=== PATIENT | female | born 1985 | race Caucasian/White ===

== ENCOUNTER 2017-05-19 12:10 | Emergency (ER) | payer BC, OTHER ==
--- NOTE | 2017-05-19 12:55 | EDPHY ---
H & P Time Seen by Provider: 05/19/17 12:52 HPI/ROS: Chief complaint. Dizzy HPI. 31-year-old female presents emergency department with complaint of heart pounding since this morning. Then lightheaded faint feeling. Cough that is slightly unusual for her and nonproductive. Pressure left anterior chest maybe going to the left shoulder. Dizzy on standing. Her symptoms are better now. No abdominal pain, nausea vomiting or diarrhea. No fever. No unusual leg pain or swelling. She went to [facility] urgent care and her heart rate was 104. Her symptoms are worse with ambulation ROS Constitutional. no fever/chills, no weakness Eyes. no problems with vision ENT. no sore throat, no nasal drainage Cardiovascular. Chest pressure Respiratory. Cough Abdominal. no abdominal pain, no nausea/vomiting, no diarrhea . no problems urinating MS. no calf pain/swelling, no neck/back pain, no joint pain Skin. no rash Lymph. no swollen glands Neuro. Dizziness Past Medical/Surgical History: Celiac disease, asthma, eating disorder, depression Social History: , nonsmoker, no alcohol Smoking Status: Former smoker Physical Exam: General Appearance: Alert well-developed female mild distress vital signs are stable Eyes: Pupils equal and round no pallor or injection. ENT, Mouth: Mucous membranes are moist. Respiratory: There are no retractions, lungs are clear to auscultation. Cardiovascular: Regular rate and rhythm. Gastrointestinal: Abdomen is soft and nontender, no masses, bowel sounds normal. Neurological: Awake and alert, sensory and motor exams grossly normal. Skin: Warm and dry, no rashes. Musculoskeletal: Neck is supple nontender. Extremities symmetrical, full range of motion. Psychiatric: Patient is oriented X 3, there is no agitation. Constitutional: Initial Vital Signs Temperature (C) 36.7 C 05/19/17 12:14 Heart Rate 84 05/19/17 12:14 Respiratory Rate 16 05/19/17 12:14 Blood Pressure 114/73 05/19/17 12:14 O2 Sat (%) 97 05/19/17 12:14 O2 Delivery Mode Room Air Allergies/Adverse Reactions: gluten Allergy (Intermediate, Verified 05/19/17 12:18) Abdominal Cramping nitrous oxide Allergy (Intermediate, Verified 05/19/17 12:18) Dyspnea Home Medications: Medication Instructions Recorded Albuterol 05/19/17 Aviane-28 Tablet 05/19/17 Claritin 05/19/17 Prozac 10 MG (*) 05/19/17 Singulair 05/19/17 Medical Decision Making - Diagnostics EKG Interpretation: EKG interpreted by me shows normal sinus rhythm normal interval and axis. QRS is normal there is no significant ST elevation or depression. There is no arrhythmia. The rate is 75 Imaging Results: Imaging Impressions Chest X-Ray 05/19/17 13:05 Impression: Prominence of perihilar interstitial markings and peribronchial cuffing. Findings are nonspecific but can be seen with bronchitis, reactive airway disease, or viral process. Procedures: IV normal saline, monitor ED Course/Re-evaluation: Re-evaluation at 2:55 p.m.--patient is stable. She and I discussed imaging lab EKG findings. We discussed treatment plan including criteria for return and importance of follow-up further evaluation. She expresses understanding and agreement Differential Diagnosis: I considered palpitations, acute coronary syndrome, pulmonary embolus, pneumonia , anxiety. No explanation for dizziness. Possible dehydration. - Data Points Laboratory Results: Laboratory Results 05/19/17 13:11 05/19/17 13:11 05/19/17 05/19/17 05/19/17 13:11 13:11 13:11 WBC RBC Hgb Hct MCV MCH MCHC RDW Plt Count MPV Neut % (Auto) Lymph % (Auto) [place] % (Auto) Eos % (Auto) Baso % (Auto) Nucleat RBC Rel Count Absolute Neuts (auto) Absolute Lymphs (auto) Absolute Monos (auto) Absolute Eos (auto) Absolute Basos (auto) Absolute Nucleated RBC Immature Gran % Immature Gran # D-Dimer < 0.27 ug/mLFEU ug/mLFEU (0.00-0.50) Sodium 141 mEq/L mEq/L (135-145) Potassium 4.1 mEq/L mEq/L (3.5-5.2) Chloride 108 mEq/L mEq/L (97-110) Carbon Dioxide 22 mEq/l mEq/l (22-31) Anion Gap 11 mEq/L mEq/L (8-16) BUN 7 mg/dL mg/dL (7-23) Creatinine 0.6 mg/dL mg/dL (0.6-1.0) Estimated GFR > 60 Glucose 87 mg/dL mg/dL (70-100) Calcium 9.1 mg/dL mg/dL (8.5-10.4) Troponin I < 0.012 ng/mL ng/mL (0.000-0.034) Beta HCG, Qual NEGATIVE 05/19/17 13:11 WBC 7.34 10^3/uL 10^3/uL (3.80-9.50) RBC 4.32 10^6/uL 10^6/uL (4.18-5.33) Hgb 13.6 g/dL g/dL (12.6-16.3) Hct 39.3 % % (38.0-47.0) MCV 91.0 fL fL (81.5-99.8) MCH 31.5 pg pg (27.9-34.1) MCHC 34.6 g/dL g/dL (32.4-36.7) RDW 13.0 % % (11.5-15.2) Plt Count 200 10^3/uL 10^3/uL (150-400) MPV 10.9 fL fL (8.7-11.7) Neut % (Auto) 61.7 % % (39.3-74.2) Lymph % (Auto) 26.6 % % (15.0-45.0) [place] % (Auto) 6.9 % % (4.5-13.0) Eos % (Auto) 2.7 % % (0.6-7.6) Baso % (Auto) 1.0 % % (0.3-1.7) Nucleat RBC Rel Count 0.0 % % (0.0-0.2) Absolute Neuts (auto) 4.53 10^3/uL 10^3/uL (1.70-6.50) Absolute Lymphs (auto) 1.95 10^3/uL 10^3/uL (1.00-3.00) Absolute Monos (auto) 0.51 10^3/uL 10^3/uL (0.30-0.80) Absolute Eos (auto) 0.20 10^3/uL 10^3/uL (0.03-0.40) Absolute Basos (auto) 0.07 10^3/uL 10^3/uL (0.02-0.10) Absolute Nucleated RBC 0.00 10^3/uL 10^3/uL (0-0.01) Immature Gran % 1.1 % % (0.0-1.1) Immature Gran # 0.08 10^3/uL 10^3/uL (0.00-0.10) D-Dimer Sodium Potassium Chloride Carbon Dioxide Anion Gap BUN Creatinine Estimated GFR Glucose Calcium Troponin I Beta HCG, Qual Medications Given: Discontinued Medications Sodium Chloride (Ns) 1,000 mls @ 0 mls/hr IV EDNOW ONE; Wide Open PRN Reason: Protocol Stop: 05/19/17 13:06 Last Admin: 05/19/17 14:02 Dose: 1,000 mls Departure - Departure Disposition: Home, Routine, Self-Care Clinical Impression: Dizziness Condition: Good Instructions: Lightheadedness (ED) Additional Instructions: Easy activity today. Drink plenty of fluids, regular meals. Return for worsening symptoms. Recheck in 1-2 days for continuing symptoms Referrals: Phyllis Lennon PA [Primary Care Provider] - 1 day, if not improved
[2017-05-19] MEDS ORDERED: NS 1,000 ML IV ONE (13:05)
--- NOTE | 2017-05-19 13:07 | CPEKG ---
Heart Rate: 75 RR Interval: 800 P-R Interval: 112 QRSD Interval: 88 QT Interval: 400 QTC Interval: 447 P Orondo: 4 QRS Orondo: 69 T Wave Orondo: 47 EKG Severity - NORMAL ECG - EKG Impression: SINUS RHYTHM Electronically Signed By: Antonio Cleveland 19-May-2017 14:08:23
[2017-05-19 13:14] VITALS: RESP 16; TEMP 98.1; O2SAT 97
[2017-05-19 13:30] LABS: PLATELET COUNT 200 10^3/uL (150-400)
[2017-05-19 14:24] VITALS: BP 122/81; PULSE 73
== END 2017-05-19 14:40 | disposition home or self-care (01) ==
DX: R42 Dizziness and giddiness (principal); E86.9 Volume depletion, unspecified; J45.909 Unspecified asthma, uncomplicated; Z87.891 Personal history of nicotine dependence